=== PATIENT | male | born 2000 | race Caucasian/White ===

== ENCOUNTER → 2021-09-15 | Outpatient (REF) | payer OTHER ==
[2021-09-15 19:49] LABS: GC DNA AMPLIFICATION NEGATIVE (NEGATIVE)
== END ==
LOC: M LAB REF 15:27
PROVIDERS: ATTEND Physician Assistant
DX: N50.82 Scrotal pain (principal)

== ENCOUNTER → 2021-09-24 | Outpatient (CLI) | payer OTHER | LOC: M RAD 12:12 → EDUNIT# 12:30 | PROVIDERS: ATTEND Physician Assistant | DX: N50.82 Scrotal pain (principal) ==